=== PATIENT | female | born 1965 | race Two or more races ===

== ENCOUNTER 2024-09-22 21:06 | Emergency (ER) | payer MEDICAID, OTHER ==
[~2024-09-22] VITALS: Ht 165.1 cm; Wt 95.4 kg
[2024-09-22 21:09] VITALS: BP 189/75; PULSE 96; RESP 16; O2SAT 95
--- NOTE | 2024-09-22 22:18 | ED.PDOC ---
History of Present Illness HPI Comments 58-year-old female came to the ER due to headaches. Patient has history of hypertension. States few hours ago she started experiencing sharp, constant, right-sided frontotemporal headaches, associated with nausea, dizziness and photophobia. Patient had a recent fall injury but she denies any head trauma. Patient states she feels confused and having a hard time focusing with these headaches. Blood pressure upon arrival was 189/78 mmHg Chief Complaint: Headache Time Seen by MD: 22:18 Reviewed Notes: Nurses Notes Allergies: Coded Allergies: NO KNOWN ALLERGIES (Unverified , 09/22/24) Home Meds Active Scripts Gabapentin (Once-Daily) (Gabapentin) 300 Mg Tab, 300 MG PO Q6HP PRN for 10 Days, #40 TAB Prov:FELICIA STINSON MD 09/22/24 Aspirin (Aspirin EC Adult Low Dose) 81 Mg Tab, 81 MG PO DAILY for 100 Days, #100 TAB Prov:FELICIA STINSON MD 09/22/24 Information Source: Patient Mode of Arrival: Ambulatory Severity: Moderate Timing: Hours Duration: Since onset Prehospital treatment: None Past Medical History PAST MEDICAL HISTORY: Arthritis, HTN Surgical History: Denies all surgeries FILLING LAYER UP History: Denies all FILLING LAYER UP Hx Family History Family History: Reviewed,noncontributory to illness Social History Smoker: Non-Smoker Alcohol: Denies ETOH Use Drugs: Denies Drug Use Lives In: Home Constitutional: denies: chills, diaphoresis, fatigue, fever, malaise, sweats, weakness, others EENTM: reports: photophobia; denies: blurred vision, double vision, ear bleeding, ear discharge, ear drainage, ear pain, ear ringing, eye pain, eye redness, hearing loss, mouth pain, mouth swelling, nasal discharge, nose bleeding, nose congestion, nose pain, tearing, throat pain, throat swelling, voice changes, others Respiratory: denies: cough, hemoptysis, orthopnea, SOB at rest, shortness of breath, SOB with excertion, stridor, wheezing, others Cardiovascular: denies: chest pain, dizzy spells, diaphoresis, Dyspnea on exertion, edema, irregular heart beat, left arm pain, lightheadedness, palpitations, PND, syncope, others Gastrointestinal: reports: nausea; denies: abdomen distended, abdominal pain, blood streaked bowels, constipated, diarrhea, dysphagia, difficulty swallowing, hematemesis, melena, poor appetite, poor fluid intake, rectal bleeding, rectal pain, vomiting, others Genitourinary: denies: abnormal vagina bleeding, burning, dyspareunia, dysuria, flank pain, frequency, hematuria, incontinence, pain, , vagina discharge, urgency, others Neurological: reports: dizziness, headache; denies: fainting, left sided numbness, left sided weakness, numbness, paresthesia, pre-existing deficit, right sided numbness, right sided weakness, seizure, speech problems, tingling, tremors, weakness, others Musculoskeletal: denies: back pain, gout, joint pain, joint swelling, muscle pain, muscle stiffness, neck pain, others Integumetry: denies: bruises, change in color, change in hair/nails, dryness, laceration, lesions, lumps, rash, wounds, others Allergic/Immunocompromised: denies: Difficulty Healing, Frequent Infections, Hives, Itching, others Hematologic/Lymphatic: denies: anemia, blood clots, easy bleeding, easy bruising, swollen glands, others Endocrine: denies: excessive hunger, excessive sweating, excessive thirst, excessive urination, flushing, intolerance to cold, intolerance to heat, unexplained weight gain, unexplained weight loss, others Psychiatric: denies: anxiety, bipolar disorder, depression, hopeless, panic disorder, schizophrenia, sleepless, suicidal, others Physical Exam General Appearance: No Apparent Distress, Normal HEENT: Normal ENT Inspection, Pharynx Normal, TMs Normal Neck: Full Range of Motion, Non-Tender, Normal, Normal Inspection Respiratory: Chest Non-Tender, Lungs Clear, No Accessory Muscle Use, No Respiratory Distress, Normal Breath Sounds Cardiovascular: No Edema, No JVD, No Murmur, No Gallop, Normal Peripheral Pulses, Regular Rate/Rhythm Breast Exam: Deferred Gastrointestinal: No Organomegaly, Non Tender, No Pulsatile Mass, Normal Bowel Sounds, Soft Genitalia: Deferred Pelvic: Deferred Rectal: Deferred Extremities: No calf tenderness, Normal capillary refill, Normal inspection, Normal range of motion, Non-tender, No pedal edema Musculoskeletal : Apperance: Normal Neurologic: Alert, warp splitter II-XII nml as Tested, No Motor Deficits, Normal Affect, Normal Mood, No Sensory Deficits Cerebellar Function: Normal Reflexes: Normal Skin: Dry, Normal Color, Warm Lymphatic: No Adenopathy Was a procedure done? Was a procedure done?: No Differential Dx Considerations may include: Anemia, electrolyte imbalance, CVA, TIA, migraine headaches X-Ray, Labs, Meds, VS Vital Signs Date Time Temp Pulse Resp B/P (MAP) Pulse Ox O2 Delivery O2 Flow Rate FiO2 09/22/24 21:09 98.9 96 16 189/75 (113) 95 Current Medications Medications (Trade) Dose Ordered Sig/Mechelle Route Start Time Stop Time Status Last Admin Acetaminophen/ Hydrocodone Bitart ([place] 10/325MG Tab) 1 tab ONCE ONCE PO 09/22/24 22:15 09/22/24 22:16 DC 09/22/24 23:42 Ondansetron HCl (Zofran Po) 8 mg ONCE ONCE PO 09/22/24 22:15 09/22/24 22:16 DC 09/22/24 23:43 EXAM: CT HEAD WITHOUT CONTRAST INDICATION: headache TECHNIQUE: CT of the head without intravenous contrast. Radiation Dose : 1. Head: CT Dose: CTDI volume is 56 mGy. Dose-length product is 991 mGy*cm The dose indicators for CT are the volume Computed Tomography (CT) Dose Index (CTDIvol) and the Dose Length Product (DLP), and are measured in units of mGy and mGy-cm, respectively. These indicators are not patient dose, but values generated from the CT scanner acquisition factors. The report includes radiation exposure data for exposures received during this examination. COMPARISON: None FINDINGS: No evidence of intracranial hemorrhage. Regional hypoattenuation in the left occipital region is suspicious for indeterminate age infarct. Patchy periventricular and subcortical white matter hypoattenuation is nonspecific but may be related to small vessel ischemic disease. The visualized paranasal sinuses and mastoid air cells are clear. The surrounding soft tissues and osseous structures are unremarkable. IMPRESSION: 1. Regional hypoattenuation in the right occipital region is suspicious for indeterminate age infarct. Consider MRI brain for further characterization. 2. No intracranial hemorrhage. Time of 1ST Reevaluation: 22:14 Reevaluation 1ST: Unchanged Time of 2ND Reevaluation: 23:30 Reevaluation 2ND: Improved Patient Education/Counseling: Diagnosis, Treatment Family Education/Counseling: No Family Present Departure 1 Departure Time of Disposition: 23:30 Impression: Primary Impression: Headache Disposition: 01 HOME / SELF CARE / HOMELESS Condition: Stable e-Prescriptions Gabapentin (Once-Daily) (Gabapentin) 300 Mg Tab 300 MG PO Q6HP PRN for 10 Days, #40 TAB Prov: FELICIA STINSON MD 09/22/24 Aspirin (Aspirin EC Adult Low Dose) 81 Mg Tab 81 MG PO DAILY for 100 Days, #100 TAB Prov: FELICIA STINSON MD 09/22/24 Discharged With: Self Critical Care Note Critical Care Time?: No Stability Stability form required: No Heart Score Heart Score: Heart Score Response (Comments) Value History N/A 0 EKG N/A 0 Age N/A 0 Risk Factors N/A 0 Troponin N/A 0 Total 0 I personally scribed for FELICIA STINSON MD ([email or web address]) on 09/22/24 at 22:18. Electronically submitted by Virgil Riojas ([facility]). I personally scribed for FELICIA STINSON MD ([email or web address]) on 09/22/24 at 22:49. Electronically submitted by Virgil Riojas ([facility]). FELICIA STINSON MD Sep 22, 2024 22:18
--- NOTE | 2024-09-22 22:40 | DVH ---
EXAM: CT HEAD WITHOUT CONTRAST INDICATION: headache TECHNIQUE: CT of the head without intravenous contrast. Radiation Dose : 1. Head: CT Dose: CTDI volume is 56 mGy. Dose-length product is 991 mGy*cm The dose indicators for CT are the volume Computed Tomography (CT) Dose Index (CTDIvol) and the Dose Length Product (DLP), and are measured in units of mGy and mGy-cm, respectively. These indicators are not patient dose, but values generated from the CT scanner acquisition factors. The report includes radiation exposure data for exposures received during this examination. COMPARISON: None FINDINGS: No evidence of intracranial hemorrhage. Regional hypoattenuation in the left occipital region is suspicious for indeterminate age infarct. Patchy periventricular and subcortical white matter hypoattenuation is nonspecific but may be related to small vessel ischemic disease. The visualized paranasal sinuses and mastoid air cells are clear. The surrounding soft tissues and osseous structures are unremarkable. IMPRESSION: 1. Regional hypoattenuation in the right occipital region is suspicious for indeterminate age infarct . Consider MRI brain for further characterization. 2. No intracranial hemorrhage. Radiation optimization: All CT scans at this facility use at least one of these dose optimization mehul hniques: automated exposure control mA and/or kV adjustment per patient size (includes targeted exam s where dose is matched to clinical indication) or iterative reconstruction.
[2024-09-22] MEDS ORDERED: GABA300T4 PO (22:49)
[2024-09-22] MEDS ORDERED: ASPI-316 PO (22:49)
[2024-09-22] MEDS: HYDROcodone-ACET 10/325MG TAB PO ONE (23:42)
[2024-09-22] MEDS: ONDANSETRON ODT 4 MG TAB PO ONE (23:43)
== END 2024-09-22 23:55 | disposition home or self-care (01) ==
LOC: ER 21:06
DX: R51.9 Headache, unspecified (principal); M19.90 Unspecified osteoarthritis, unspecified site; R11.0 Nausea; I10 Essential (primary) hypertension
CPT/HCPCS: 70450; 82947; 99284; Q0162